=== PATIENT | male | born 1960 | race Caucasian/White ===

== ENCOUNTER 2016-11-05 06:55 | Emergency (ER) | payer MEDICAID, MEDICARE ==
[~2016-11-05] VITALS: Ht 172.7 cm; Wt 118.2 kg
[~2016-11-05 06:55] MED LIST: ASPI325T32 PO; DIL4T PO; ENOX40DI8 SUBQ; HYDR-3797 PO; ONDA4TAB12 PO; OXYC-530 PO; OXYC1TAB24 PO; POLY17PO6 PO; Senna/Docusate Sodium PO; [UNRECOGNIZED DRUG - OTHER]
[2016-11-05 06:57] VITALS: BP 159/94; PULSE 93; RESP 16; O2SAT 98
--- NOTE | 2016-11-05 07:55 | ED.REPORT ---
HPI-General Illness Date of Service Nov 05, 2016 ED Provider: Tommy Sprague MD Patient is a 56 year old male with a hx of AAA and HTN who presents to the ED complaining of tongue numbness for the past 2 days. Associated symptoms include trouble closing his L eye and L sided facial droop with drooling. He denies extremity weakness, numbness, tingling, slurred speech, LOC, vomiting, fever, cough, or any other symptoms. Nursing Notes Stated Complaint: TONGUE NUMBNESS Chief Complaint: General Complaint Nursing Notes Reviewed: Yes Allergies: Coded Allergies: No Known Allergies (Unverified , 08/07/15) Scheduled Aspirin (Aspirin) 325 Mg Tablet 325 MG PO DAILY Enoxaparin Sodium (Enoxaparin Sodium) 40 Mg/0.4 Ml Syringe 40 MG SUBQ Q24 Prednisone (PredniSONE) 20 Mg Tablet 60 MG PO DAILY 3 tablets daily for 5 days, 2 tablets daily for 3 days, 1 tablet daily for 3 days, stop. Scheduled PRN ([Senna/Docusate Sodium]) 1 TABLET TABLET 1 TABLET PO BID PRN PRN For Constipation Hydromorphone (Dilaudid) 4 Mg Tablet 4 MG PO Q4H PRN PRN Pain Hydroxyzine Pamoate (HydrOXYzine Pamoate) 25 Mg Capsule 25 MG PO Q4H PRN PRN For Nausea/Vomiting Ondansetron ODT (Ondansetron ODT) 4 Mg Tab.rapdis 0 MG PO Q4H PRN PRN For Nausea /Vomiting Polyethylene Glycol 3350 (Miralax) 17 Gm Powd.pack 17 GM PO DAILY PRN PRN For Constipation oxyCODONE (oxyCODONE) 5 Mg Tablet 5 MG PO Q4H PRN PRN For Severe Pain oxyCODONE-Acetaminophen 5-325 mg (oxyCODONE-Acetaminophen 5-325 mg) 1 Each Tablet 1-2 TAB PO q4 hours PRN PRN For Pain General Time Seen by MD: 07:09 Chief Complaint Other (Tongue numbness ) Hx Obtained From: Patient Arrived By: Walk-in Sudden in Onset?: Yes Onset Occurred: 2 days ago Symptom Duration: Since onset Severity: Current: No pain currently Severity: Maximum: No pain Associated with: Reports: Weakness (L sided face ) Pertinent Negative: Pt denies other symptoms Similar Sx Previous: No Past Medical History Past Medical History History of avascular necrosis of left hip s/p replacement. AAA injury related blood clot anxiety back injury Reports: Hypertension Past Surgical History Bilat wrist fusion vein removed L arm Bilat full hip replacements Family History Dad CABGx4 and DM Smoking History Current Some Day Smoker Social History Alcohol Use: In recovery Drug Use: Denies drug use Ambulatory Status Independent Review of Systems +tongue numbness -extremity numbness, weakness, tingling Full Review of Systems Constitutional: Denies: Fever Respiratory: Denies: Non-productive cough GI: Denies: Vomiting Neurologic: Reports: Focal weakness (L sided face ), Denies: Change LOC, Slurred speech Complete sys rev & neg: except as marked. Physical Exam Vital Signs Vital Signs Date Time Temp Pulse Resp B/P Pulse Ox O2 Delivery O2 Flow Rate FiO2 11/05/16 09:31 85 153/91 93 Room Air 11/05/16 06:57 36.2 93 16 159/94 98 Room Air Initial VS: Reviewed, Vital signs abnormal Head / Eyes: Atraumatic, Normocephalic Neck: Full range of motion Extremities: Vascular intact, Neuro intact Skin: Warm, Dry Psychiatric: Mood/affect normal, Behavior normal, Normal thought content General/Constitutional: Awake, Alert Head / Eyes: PERRL, EOMI Respiratory / Chest: Atraumatic, Breath sounds NL, Breath sounds = bilat Cardiovascular: Heart rate NL, Regular rhythm, Heart sounds NL Neurologic: Oriented X3, Speech NL motor paralysis to L side of face other cranial nerves unaffected Re-Eval/Medical Decision Time of Eval: 08:49 Re-Evaluation/Progress Note: Discussed f/u and at home care. Discussed plan for discharge. Patient understands and agrees with plan. All questions addressed at this time. 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 You have what is called Wright's Palsy. This causes one side of a person's face to become weak or droop due to inflammation of one of the nerves that control the facial muscles. This should resolve over the next few weeks. Although some patients may have residual symptoms for an undetermined length of time. Take Prednisone as prescribed to help relieve your symptoms. The prescription has been sent to the [facility] in [place]. You received your first dose today in the department. Use eye drops to keep your eye moist since you cannot blink properly. This will help avoid eye irritation. Use celluvisc at night to lubricate the eye. You may tape your eye shit at night to avoid scratching it. If you would like to lose weight, cut out calories you drink by eliminating soda , fruit juice, and sports drinks. Replace these drinks with water. Call the number provided to establish primary care. Return to the emergency department if you experience numbness, weakness, or tingling in your extremities, headache, or any other new or concerning symptoms. Referrals: Angelique Gaitan Attestation Portions of this note were transcribed by Matthew Reyes. I, Dr. Sprague personally performed the history, physical exam and medical decision-making; I reviewed and confirmed the accuracy of the information in the transcribed note. Signed by: Susanna Luna, 11/05/16 copies to: Angelique Gaitan Kirk H MD Nov 05, 2016 07:55 MATTHEW REYES Nov 05, 2016 08:47
[2016-11-05] MEDS ORDERED: PRE20 PO (08:57)
[2016-11-05] MEDS ORDERED: predniSONE 20 mg Tablet PO ONE (09:00)
[2016-11-05 09:31] VITALS: BP 153/91; PULSE 85; O2SAT 93
== END 2016-11-05 09:29 | disposition home or self-care (01) ==
LOC: SED 06:55
DX: G51.0 Bell's palsy (principal); I10 Essential (primary) hypertension; F41.9 Anxiety disorder, unspecified; F17.200 Nicotine dependence, unspecified, uncomplicated; Z79.82 Long term (current) use of aspirin